=== PATIENT | female | born 1985 | race Hispanic/Latino ===

== ENCOUNTER 2017-07-29 19:48 | Emergency (ER) | payer SELFPAY ==
[2017-07-29 20:37] LABS: Bilirubin Negative (Negative); Blood, Urine Moderate (Negative); Glucose, Urine (Dipstick) 500 mg/dL (Negative); Ketone, Urine Trace mg/dL (Negative); Nitrite Negative (Negative); Protein, Urine (Dipstick) 30 mg/dL (Neg-Trace)
[2017-07-29 20:38] LABS: Bacteria/HPF 1+ HPF (None Seen); Hyaline Casts/LPF 0-3 HYALINE CAST LPF (0-3 Hyaline)
[2017-07-29 22:03] LABS: #Basophils 0.1 thou/uL (0.0-0.2); #Eosinphils 0.1 thou/uL (0.0-0.7); #Lymphocytes 2.8 thou/uL (1.20-3.40); #Monocytes 0.6 thou/uL (0.11-0.59); #Neutrophils 4.3 thou/uL (1.40-6.50); %Basophils 0.8 % (0.0-1.0); %Eosinophils 1.6 % (0.0-10.0); %Lymphocytes 35.5 % (21.0-51.0); Hematocrit 47.4 % (36.0-47.0); Mean Platelet Volume 8.3 fL (7.4-10.4); White Blood Cell (WBC) Count 7.8 thou/uL (4.8-10.8)
[2017-07-29 22:23] LABS: ALT (SGPT) 98 U/L (8-55); AST (SGOT) 54 U/L (5-34); Alkaline Phosphatase 54 U/L (40-150); Anion Gap 12 mmol/L (10-20); BUN (Urea Nitrogen) 13 mg/dL (7.0-18.7); Bilirubin, Total 1.4 mg/dL (0.2-1.2); Calc. Creatinine Clearance 0 mL/min (70-130); Calcium 9.3 mg/dL (7.8-10.44); Carbon Dioxide 28 mmol/L (22-29); Chloride 100 mmol/L (98-107); Estimated GFR-MDRD Greater than 90; Globulin 3.9 g/dL (2.4-3.5); Protein, Total 8.1 g/dL (6.0-8.3)
[2017-07-29] MEDS ORDERED: Ondansetron HCl/PF 4 MG/2 ML Vial ONE (23:59)
[2017-07-30] MEDS ORDERED: Ketorolac Tromethamine 30 MG/ML VIAL ONE (01:06)
[2017-07-30] MEDS ORDERED: Methocarbamol 1 GM/10 ML VIAL SLOW IVP SCH (03:00)
--- NOTE | 2017-07-30 07:41 | CT ---
PRELIMINARY REPORT/[facility]/EMERGENCY AFTER HOURS PROCEDURE: EXAM: CT Abdomen and Pelvis Without Intravenous Contrast EXAM DATE/TIME: Exam ordered 07/30/2017 2:31 AM CLINICAL HISTORY: 31 years old, female; Pain; Abdominal pain; Localized; Lower; Prior surgery; Patient HX: Previous on pacs; Er 13; Low back pain worse on left side - onset today vomiting onset today; Surgical history of cholecystectomy, laparoscopic, surgical history of section x 1, surgical history of tuba l ligation TECHNIQUE: Axial computed tomography images of the abdomen and pelvis without intravenous contrast. Coronal reformatted images were created and reviewed. COMPARISON: No relevant prior studies available. FINDINGS: Lower thorax: No acute findings. ABDOMEN: Liver: There is a diffuse decrease in hepatic parenchymal density, consistent with fatty infiltratio n. Gallbladder and bile ducts: There has been a cholecystectomy. No ductal dilation. Pancreas: There is peripancreatic inflammatory stranding suspicious for acute pancreatitis. No ducta l dilation. Spleen: Basis proximal stomachThe spleen is normal. Adrenals: The adrenal glands are normal. Kidneys and ureters: The kidneys are normal. No obstructing stones. No hydronephrosis. Stomach and bowel: The colon is normal. Appendix: A normal appendix is identified. PELVIS: Bladder: Normal. No stones. Reproductive: The uterus is normal. ABDOMEN and PELVIS: Intraperitoneal space: Normal. No free air. No significant fluid collection. Bones/joints: No acute fracture. No dislocation. Soft tissues: There is a fat-containing umbilical hernia. Vasculature: Normal. No abdominal aortic aneurysm. Lymph nodes: Normal. No enlarged lymph nodes. IMPRESSION: There is peripancreatic inflammatory stranding suspicious for acute pancreatitis. Correlation with lipase values is advised. Thank you for allowing us to participate in the care of your patient. Dictated and Authenticated by: Lokesh Lester MD 07/30/2017 3:10 AM Central Time ([place] \T\ [place]) FINAL REPORT CT ABDOMEN AND PELVIS WITHOUT CONTRAST: I agree with the preliminary report given by Dr. Lokesh Lester of [facility]. POS: [facility]
== END 2017-07-30 04:23 | disposition home or self-care (01) ==
LOC: ERS 19:48
DX: R10.9 Unspecified abdominal pain (principal); E11.9 Type 2 diabetes mellitus without complications; K21.9 Gastro-esophageal reflux disease without esophagitis; G43.909 Migraine, unspecified, not intractable, without status migrainosus; F41.9 Anxiety disorder, unspecified; F32.9 Major depressive disorder, single episode, unspecified; Z79.4 Long term (current) use of insulin
CPT/HCPCS: 36415; 74176; 80053; 81003; 81015; 81025; 82010; 83690; 85025; 96361; 96365; 96375; J1885; J2405; J2800

== ENCOUNTER 2017-10-05 10:59 | Emergency (ER) | payer SELFPAY ==
[2017-10-05] MEDS ORDERED: Dexamethasone 10 MG/ML VIAL ONE (13:41)
== END 2017-10-05 14:35 | disposition home or self-care (01) ==
LOC: ERS 10:59
DX: R05 Cough (principal); E11.9 Type 2 diabetes mellitus without complications; K21.9 Gastro-esophageal reflux disease without esophagitis; G43.909 Migraine, unspecified, not intractable, without status migrainosus; F17.210 Nicotine dependence, cigarettes, uncomplicated; Z79.4 Long term (current) use of insulin
CPT/HCPCS: 96372; J1100

== ENCOUNTER 2017-10-17 12:08 | Emergency (ER) | payer SELFPAY ==
[2017-10-17] MEDS ORDERED: Ketorolac Tromethamine 60 MG/2 ML VIAL ONE (12:38)
--- NOTE | 2017-10-17 13:17 | RAD ---
RIGHT SHOULDER RADIOGRAPHS: Date: 10-17-17 Provided Clinical History: Right shoulder pain. FINDINGS: There is no evidence for fracture or other acute osseous abnormality. The glenohumeral relationship a ppears normal. The subacromial space appears preserved. Visualized right lung field appears clear. IMPRESSION: No evidence for an acute osseous abnormality. POS: [facility]
== END 2017-10-17 13:14 | disposition home or self-care (01) ==
LOC: ERS 12:08
DX: M75.101 Unspecified rotator cuff tear or rupture of right shoulder, not specified as traumatic (principal); E11.9 Type 2 diabetes mellitus without complications; K21.9 Gastro-esophageal reflux disease without esophagitis; G43.909 Migraine, unspecified, not intractable, without status migrainosus; F31.9 Bipolar disorder, unspecified; F17.210 Nicotine dependence, cigarettes, uncomplicated; Z79.4 Long term (current) use of insulin; Z71.6 Tobacco abuse counseling
CPT/HCPCS: 96372; 99406; J1885

== ENCOUNTER 2017-11-26 17:20 | Emergency (ER) | payer SELFPAY ==
--- NOTE | 2017-11-26 18:43 | RAD ---
CHEST TWO VIEWS 11/26/17 COMPARISON: 06/24/17. HISTORY: Cough for a month. FINDINGS: No pneumothorax, pleural fluid, or focal consolidation is seen. However, there is asymmetric patchy o pacity noted in the right lung base superior to the right hemidiaphragm medially. No acute osseous ab normality. IMPRESSION: There is patchy opacity in the right lung base suggesting right lower lobe pneumonia. Followup imagin g following treatment advised. POS: [facility]
[2017-11-26] MEDS ORDERED: cefTRIAXone\\ROCEPHIN 500 MG VIAL ONE (18:44)
[2017-11-26] MEDS ORDERED: Lidocaine 1% (PF) 30 ML VIAL ONE (18:44)
== END 2017-11-26 19:13 | disposition home or self-care (01) ==
LOC: ERS 17:20
DX: J18.9 Pneumonia, unspecified organism (principal); K21.9 Gastro-esophageal reflux disease without esophagitis; G43.909 Migraine, unspecified, not intractable, without status migrainosus; F31.9 Bipolar disorder, unspecified; F17.210 Nicotine dependence, cigarettes, uncomplicated; Z79.899 Other long term (current) drug therapy; Z79.4 Long term (current) use of insulin
CPT/HCPCS: 71046; 96372; J0696; J2001

== ENCOUNTER 2017-11-29 22:16 | Emergency (ER) | payer SELFPAY ==
--- NOTE | 2017-11-29 23:02 | RAD ---
PORTABLE CHEST: 11/29/17 HISTORY: cough with congestion. COMPARISON: 11/26/17. There continues to be patchy right lower lobe infiltrate. There is now evidence of early left lower l obe infiltrate. Upper lungs remain clear. IMPRESSION: Bibasilar infiltrates are now apparent. POS: [facility]
[2017-11-30 00:57] LABS: #Basophils 0.1 thou/uL (0.0-0.2); #Eosinphils 0.2 thou/uL (0.0-0.7); #Monocytes 0.6 thou/uL (0.11-0.59); #Neutrophils 4.1 thou/uL (1.40-6.50); %Basophils 1.6 % (0.0-1.0); %Eosinophils 2.2 % (0.0-10.0); %Lymphocytes 37.7 % (21.0-51.0); %Monocytes 7.1 % (0.0-10.0); %Neutrophils 51.5 % (42.0-75.0); Hemoglobin 13.9 g/dL (12.0-16.0); Mean Corpuscular HGB CONC 33.6 g/dL (32.0-36.0); Mean Corpuscular Hemoglobin 30.6 pg (27.0-31.0); Mean Corpuscular Volume 91.1 fl (81.0-99.0); Mean Platelet Volume 8.4 fL (7.4-10.4); Platelet Count 295 thou/uL (130-400); RBC Distribution Width 11.8 % (11.5-14.5); Red Blood Cell (RBC) Count 4.53 mill/uL (4.20-5.40)
[2017-11-30 01:11] LABS: ALT (SGPT) 163 U/L (8-55); AST (SGOT) 46 U/L (5-34); Alkaline Phosphatase 66 U/L (40-150); Anion Gap 13 mmol/L (10-20); BUN (Urea Nitrogen) 14 mg/dL (7.0-18.7); Bilirubin, Total 0.5 mg/dL (0.2-1.2); Calc. Creatinine Clearance 0 mL/min (70-130); Calcium 9.4 mg/dL (7.8-10.44); Carbon Dioxide 27 mmol/L (22-29); Chloride 99 mmol/L (98-107); Estimated GFR-MDRD Greater than 90; Globulin 3.5 g/dL (2.4-3.5); Glucose 266 mg/dL (70-105); Protein, Total 7.5 g/dL (6.0-8.3); Sodium 135 mmol/L (136-145)
[2017-11-30] MEDS ORDERED: Ketorolac Tromethamine 30 MG/ML VIAL ONE (01:27)
== END 2017-11-30 02:24 | disposition home or self-care (01) ==
LOC: ERS 22:16
DX: J18.9 Pneumonia, unspecified organism (principal); E11.9 Type 2 diabetes mellitus without complications; K21.9 Gastro-esophageal reflux disease without esophagitis; G43.909 Migraine, unspecified, not intractable, without status migrainosus; F31.9 Bipolar disorder, unspecified; F17.210 Nicotine dependence, cigarettes, uncomplicated; Z79.4 Long term (current) use of insulin
CPT/HCPCS: 36415; 71045; 80053; 85025; 94640; 96372; J1885; J7620

== ENCOUNTER 2018-01-09 10:59 | Emergency (ER) | payer SELFPAY ==
[2018-01-09] MEDS ORDERED: Lidocaine 1% w/Epinephrine 1:100K 20 ML VIAL ONE (12:44)
[2018-01-09] MEDS ORDERED: Adacel (T-DAP) 0.5 ML VIAL ONE (13:33)
== END 2018-01-09 14:06 | disposition home or self-care (01) ==
LOC: ERS 10:59
DX: L02.415 Cutaneous abscess of right lower limb (principal); E11.9 Type 2 diabetes mellitus without complications; K21.9 Gastro-esophageal reflux disease without esophagitis; F31.9 Bipolar disorder, unspecified; G43.909 Migraine, unspecified, not intractable, without status migrainosus; Z79.4 Long term (current) use of insulin; Z79.899 Other long term (current) drug therapy
CPT/HCPCS: 10060; 87070; 87077; 87205; 90471; 90715; J2001

== ENCOUNTER 2018-01-14 17:10 | Inpatient (IN) | payer SELFPAY ==
[2018-01-14] MEDS ORDERED: Lidocaine 1% w/Epinephrine 1:100K 20 ML VIAL ONE (17:55)
[2018-01-14] MEDS ORDERED: Morphine 4 MG/ML VIAL ONE (18:45)
[2018-01-14] MEDS ORDERED: MEROPENEM 1 GM/50 ML 1 GM in Premix Bag 1 BAG IVPB SCH (19:00)
[2018-01-14 19:01] LABS: #Eosinphils 0.2 thou/uL (0.0-0.7); #Lymphocytes 3.8 thou/uL (1.20-3.40); #Monocytes 0.7 thou/uL (0.11-0.59); %Basophils 0.2 % (0.0-1.0); %Eosinophils 1.5 % (0.0-10.0); %Lymphocytes 35.4 % (21.0-51.0); %Monocytes 6.3 % (0.0-10.0); %Neutrophils 56.5 % (42.0-75.0); Hemoglobin 14.1 g/dL (12.0-16.0); Mean Corpuscular HGB CONC 33.5 g/dL (32.0-36.0); Mean Corpuscular Volume 89.4 fl (81.0-99.0); Mean Platelet Volume 7.8 fL (7.4-10.4); Platelet Count 316 thou/uL (130-400); RBC Distribution Width 12.2 % (11.5-14.5); Red Blood Cell (RBC) Count 4.72 mill/uL (4.20-5.40); White Blood Cell (WBC) Count 10.6 thou/uL (4.8-10.8)
[2018-01-14 19:26] LABS: ALT (SGPT) 136 U/L (8-55); AST (SGOT) 63 U/L (5-34); Alkaline Phosphatase 55 U/L (40-150); Anion Gap 12 mmol/L (10-20); BUN (Urea Nitrogen) 10 mg/dL (7.0-18.7); Bilirubin, Total 0.5 mg/dL (0.2-1.2); Calc. Creatinine Clearance 0 mL/min (70-130); Calcium 9.9 mg/dL (7.8-10.44); Carbon Dioxide 27 mmol/L (22-29); Chloride 99 mmol/L (98-107); Estimated GFR-MDRD Greater than 90; Globulin 3.6 g/dL (2.4-3.5); Glucose 383 mg/dL (70-105); Potassium 4.1 mmol/L (3.5-5.1); Protein, Total 7.6 g/dL (6.0-8.3); Sodium 134 mmol/L (136-145)
[2018-01-14 19:49] LABS: BHCG - Serum Negative (NEGATIVE); Pregs Control Background? CLEAR/WHITE (CLR/WHITE); Pregs Control Bar Appear? YES (CONTROL BAR)
[2018-01-14] MEDS ORDERED: HumaLOG 300 UNITS/3 ML VIAL SC PRN (20:44)
[2018-01-14] MEDS ORDERED: Dextrose 50% Abboject 50 ML SYRINGE SLOW IVP PRN (20:44)
[2018-01-14] MEDS ORDERED: Ondansetron ODT 4 MG TAB PO PRN (20:44)
[2018-01-14] MEDS ORDERED: Ondansetron HCl/PF 4 MG/2 ML Vial IVP PRN (20:44)
[2018-01-14] MEDS ORDERED: Dextrose 5% in Water 1,000 ML IV PRN (20:44)
[2018-01-14] MEDS ORDERED: Acetaminophen 650 MG Suppository PR PRN (20:44)
[2018-01-14] MEDS ORDERED: Bisacodyl 5 MG TAB PO PRN (20:44)
[2018-01-14] MEDS: traMADol HCl 50 MG TAB PO PRN (21:58)
[2018-01-14] MEDS: CEFAZOLIN SLOW IVP SCH (21:59)
[2018-01-14] MEDS: STERILE WATER SLOW IVP SCH (21:59)
[2018-01-14] MEDS: Insulin Detemir 100 UNITS/ML 10 UNITS in Pre-Filled Syringe 1 EACH SC SCH (21:59)
[2018-01-14] MEDS: Sodium Chloride 0.9% 1,000 ML IV SCH (21:59)
[2018-01-14] MEDS: Docusate 100 MG CAP PO SCH (22:00)
[2018-01-14 23:03] LABS: Lactic Acid 1.6 mmol/L (0.5-2.2)
[2018-01-15] MEDS: traMADol HCl 50 MG TAB PO PRN ×4 (03:51→20:23)
[2018-01-15 06:10] LABS: #Eosinphils 0.2 thou/uL (0.0-0.7); #Lymphocytes 2.6 thou/uL (1.20-3.40); #Monocytes 0.7 thou/uL (0.11-0.59); %Basophils 0.5 % (0.0-1.0); %Eosinophils 1.7 % (0.0-10.0); %Lymphocytes 27.3 % (21.0-51.0); %Monocytes 7.7 % (0.0-10.0); %Neutrophils 62.8 % (42.0-75.0); Hemoglobin 12.8 g/dL (12.0-16.0); Mean Corpuscular HGB CONC 33.6 g/dL (32.0-36.0); Mean Corpuscular Volume 89.3 fl (81.0-99.0); Mean Platelet Volume 7.7 fL (7.4-10.4); Platelet Count 290 thou/uL (130-400); Red Blood Cell (RBC) Count 4.27 mill/uL (4.20-5.40); White Blood Cell (WBC) Count 9.5 thou/uL (4.8-10.8)
[2018-01-15 06:28] LABS: Lactic Acid 1.2 mmol/L (0.5-2.2)
[2018-01-15 06:31] LABS: Anion Gap 13 mmol/L (10-20); BUN (Urea Nitrogen) 12 mg/dL (7.0-18.7); Calc. Creatinine Clearance 0 mL/min (70-130); Calcium 8.7 mg/dL (7.8-10.44); Carbon Dioxide 25 mmol/L (22-29); Chloride 101 mmol/L (98-107); Estimated GFR-MDRD Greater than 90; Glucose 187 mg/dL (70-105); Potassium 3.8 mmol/L (3.5-5.1); Sodium 135 mmol/L (136-145)
[2018-01-15] MEDS: CEFAZOLIN SLOW IVP SCH ×3 (06:40→22:31)
[2018-01-15] MEDS: STERILE WATER SLOW IVP SCH ×3 (06:40→22:31)
[2018-01-15] MEDS: HumaLOG 300 UNITS/3 ML VIAL SC PRN ×3 (06:43→17:18)
--- NOTE | 2018-01-15 08:51 | PDOC.PN ---
- Subjective Encounter Start Date: 01/15/18 Encounter Start Time: 12:50 Subjective: Patient unchanged. Minimal drainage from lump in right groin. Very -: tender. - Objective Resuscitation Status: Resuscitation Status FULL:Full Resuscitation MAR Reviewed: Yes Vital Signs & Weight: Vital Signs (12 hours) Temp Pulse Resp BP Pulse Ox 01/15/18 07:50 98.3 F 84 20 136/74 96 01/15/18 03:55 98.8 F 80 18 146/70 H 01/15/18 00:10 99.4 F 88 18 Result Diagrams: 01/15/18 05:55 01/15/18 05:55 Additional Labs: Accuchecks 01/14/18 22:07 POC Glucose 252 H Phys Exam - Physical Examination Constitutional: NAD HEENT: moist MMs Respiratory: no wheezing, no rales, no rhonchi, clear to auscultation bilateral Cardiovascular: RRR, no significant murmur Gastrointestinal: soft, non-tender, positive bowel sounds 10x7 cm induration right groin on thigh distal to inguinal ligament, very TTP, no erythema, no warmth, no fluctuance Neurological: non-focal Psychiatric: normal affect, A&O x 3 Dx/Plan (1) Skin abscess Code(s): L02.91 - CUTANEOUS ABSCESS, UNSPECIFIED Status: Acute Qualifiers: Site of cutaneous abscess: extremity Laterality: right Comment: few Beta hemolytic strep on culture, likely Hidradenitis, surgical consultation for excision, on Ancef currently (2) Diabetes Code(s): E11.9 - TYPE 2 DIABETES MELLITUS WITHOUT COMPLICATIONS Status: Chronic (3) GERD (gastroesophageal reflux disease) Code(s): K21.9 - GASTRO-ESOPHAGEAL REFLUX DISEASE WITHOUT ESOPHAGITIS Status: Chronic (4) Morbid obesity Code(s): E66.01 - MORBID (SEVERE) OBESITY DUE TO EXCESS CALORIES Status: Chronic (5) LFT elevation Code(s): R79.89 - OTHER SPECIFIED ABNORMAL FINDINGS OF BLOOD CHEMISTRY Status : Acute Comment: likely fatty liver with obesity and DM - Plan cont current plan of care, continue antibiotics Surgical consultation for possible excision * . - Discharge Day Encounter end time: 13:00
[2018-01-15] MEDS: Enoxaparin Sodium 40 MG/0.4 ML SYRINGE SC SCH (09:18)
[2018-01-15] MEDS: Docusate 100 MG CAP PO SCH ×2 (09:18→22:31)
[2018-01-15] MEDS: Insulin Detemir 100 UNITS/ML 10 UNITS in Pre-Filled Syringe 1 EACH SC SCH ×2 (09:19→22:31)
[2018-01-15] MEDS: Acetaminophen 325 MG TAB PO PRN ×2 (10:38→20:22)
--- NOTE | 2018-01-15 10:40 | HP ---
PRIMARY CARE PHYSICIAN: [facility] in [place]. CHIEF COMPLAINT: Swelling in right groin. HISTORY OF PRESENT ILLNESS: This is a 32-year-old obese, diabetic, female who has had swell ing in her right groin for 3 weeks. She states that it is very painful, red and had a head on it. S he went to the emergency room last week and had it drained a large amount of pus was expressed and th en patient was put on clindamycin. She has been taking this regularly for the last 5 days. The [facility] ent reports that after the drainage, the swollen area got twice as large and much more painful. She has not had any systemic symptoms. She came back in today, it was relanced in the emergency room wit hout any drainage at all, a wick was put in the middle of it and the patient was given meropenem and vancomycin in the emergency room for failed outpatient treatment with oral antibiotics. Of note, the patient does report that she has had multiple these sort of lesions in her armpits, but never got th is painful in the past, no restraints spontaneously. PAST MEDICAL HISTORY: 1. Diabetes mellitus type 2 on insulin and oral hypoglycemics. 2. Gastroesophageal reflux disease. 3. Migraine headaches. PAST SURGICAL HISTORY: 1. Cholecystectomy. 2. section. 3. Tubal ligation. PAST PSYCHIATRIC HISTORY: Bipolar disorder. SOCIAL HISTORY: No tobacco, alcohol, or illicit drug use. FAMILY HISTORY: Hypertension and collagen vascular disease. ALLERGIES: No known drug allergies. CURRENT MEDICATIONS: 1. Metformin 1000 mg twice a day. 2. Glyburide 5 mg twice a day. 3. Nexium 20 mg daily. 4. Levemir 10-20 units subcutaneously 2 times a day. 5. DuoNeb as needed. 6. Clindamycin 300 mg 4 times a day. REVIEW OF SYSTEMS: Constitutional: No fevers, no chills. Eyes: No double vision or blurred vision . ENT: No congestion, drainage or sore throat. Pulmonary: No coughing, wheezing, shortness breath . Cardiac: No chest pain, no palpitations or racing heart. Gastrointestinal: No abdominal pain. She did have some nausea when she choked on a pill the other day. Otherwise, no nausea or vomiting, no diarrhea, constipation. Genitourinary: No dysuria or hematuria. Musculoskeletal: No muscle ach es or joint pains. Skin: See HPI. No other lesions. Neurologic: No numbness, tingling or focal w eakness. PHYSICAL EXAMINATION: VITAL SIGNS: Blood pressure 116/65, pulse 86, respirations 18, temperature 99.0, O2 sat 97% on room air. GENERAL: This is a well-developed, morbidly obese female in no apparent distress. HEENT: Pupils equal, round, and react to light. Oropharynx is clear without lesions, erythema or ex udate. NECK: Supple, no lymphadenopathy, no thyroid nodules or enlargement. HEART: Regular rate and rhythm, no murmurs, rubs or gallops. LUNGS: Clear to auscultation bilaterally, no wheezes, crackles or rhonchi. ABDOMEN: Soft, obese, nontender to palpation, normoactive bowel sounds, no hepatosplenomegaly or mas ses. EXTREMITIES: No clubbing, cyanosis or edema. SKIN: The patient has a 5 cm area of induration in the right groin. This is distal to the inguinal ligament on the medial thigh just distal to the ligament, has a bandage in place and an incision with draining a small amount of blood in the cavity. There is no induration, minimal overlying erythema, no warmth, very tender to palpation. No other rashes or lesions noted. NEUROLOGIC: Intact sensation and strength in all extremities and normal. No facial droop. LABORATORY DATA: CBC within normal limits. Complete metabolic panel notable for sodium of 134, gluc ose of 382. Lactic acid is elevated at 3.1, AST elevated at 63, ALT of 136. Serum test is negative. Beta hydroxybutyrate was negative. Microbiology: Wound culture from 5 days ago shows fe w Streptococcus agalactiae group B and few normal skin dean. No Staph or MRSA. ASSESSMENT: 1. Recurrent skin lesion in the right groin, status post drainage, this could be an abscess versus l ymphadenitis versus hidradenitis suppurativa as the more likely a candidate. The patient did have a little bit of bacteria grow back from it. Streptococcus should be covered by clindamycin and given he r worsening condition in the last 5 days. We will switch her to Ancef, I do not think she needs any MRSA coverage at this point or any coverage of Pseudomonas and gram negatives. We will have a genera l surgery come by and see her as if it is hidradenitis suppurativa of the gland may need to be excise d as antibiotic treatment will not be helpful in that case. 2. Elevated lactate. The patient is not acidotic. This is most likely secondary to her metformin. We will recheck in the morning after fluids overnight. 3. Diabetes mellitus type 2, insulin-dependent. We will resume patient's Lantus and will put her on moderate sliding scale and give her a diabetic diet. 4. Gastroesophageal reflux disease. We will put patient on proton pump inhibitor while in the hospi oneal. 5. Deep venous thrombosis prophylaxis, put patient on Lovenox and sequential compression devices whi le in bed. 6. Code status. I did discuss with the patient, she is a FULL CODE. Should she be incapacitated, h er medical decision maker will be her sister, Breanna Danielle.
[2018-01-15] MEDS: Sodium Chloride 0.9% 1,000 ML IV SCH ×2 (10:42→22:40)
[2018-01-15 12:47] VITALS: BMI 51.6
[2018-01-15] MEDS ORDERED: Lidocaine 1% w/Epinephrine 1:100K 20 ML VIAL FS SCH (20:15)
[2018-01-16] MEDS: STERILE WATER SLOW IVP SCH ×3 (06:46→23:30)
[2018-01-16] MEDS: CEFAZOLIN SLOW IVP SCH ×3 (06:46→23:30)
[2018-01-16] MEDS: HumaLOG 300 UNITS/3 ML VIAL SC PRN ×3 (06:49→17:40)
[2018-01-16] MEDS: Docusate 100 MG CAP PO SCH ×2 (09:03→22:11)
[2018-01-16] MEDS: Enoxaparin Sodium 40 MG/0.4 ML SYRINGE SC SCH (09:04)
[2018-01-16] MEDS: Insulin Detemir 100 UNITS/ML 10 UNITS in Pre-Filled Syringe 1 EACH SC SCH ×2 (09:04→22:12)
--- NOTE | 2018-01-16 10:19 | PDOC.PN ---
- Subjective Encounter Start Date: 01/16/18 Encounter Start Time: 10:17 Subjective: no fever, mild paim - Objective Resuscitation Status: Resuscitation Status FULL:Full Resuscitation MAR Reviewed: Yes Vital Signs & Weight: Vital Signs (12 hours) Temp Pulse Resp BP Pulse Ox 01/16/18 07:45 98.1 F 80 18 136/79 96 Weight Weight 264 lb 8.875 oz I&O: 01/15/18 01/16/18 01/17/18 06:59 06:59 06:59 Intake Total 672 Balance 672 Result Diagrams: 01/15/18 05:55 01/15/18 05:55 Additional Labs: Accuchecks 01/16/18 01/15/18 01/15/18 06:50 22:36 16:07 POC Glucose 165 H 198 H 216 H 01/15/18 11:11 POC Glucose 225 H Phys Exam - Physical Examination Neck: no JVD Respiratory: clear to auscultation bilateral Cardiovascular: RRR, no significant murmur Gastrointestinal: soft, non-tender, positive bowel sounds bandaged lesion R inguinal area Musculoskeletal: edema present Dx/Plan (1) Abscess of groin, left Code(s): L02.214 - CUTANEOUS ABSCESS OF GROIN Status: Acute (2) Diabetes Code(s): E11.9 - TYPE 2 DIABETES MELLITUS WITHOUT COMPLICATIONS Status: Chronic Qualifiers: Diabetes mellitus type: type 2 Diabetes mellitus complication status: without complication (3) GERD (gastroesophageal reflux disease) Code(s): K21.9 - GASTRO-ESOPHAGEAL REFLUX DISEASE WITHOUT ESOPHAGITIS Status: Chronic (4) GERD (gastroesophageal reflux disease) Code(s): K21.9 - GASTRO-ESOPHAGEAL REFLUX DISEASE WITHOUT ESOPHAGITIS Status: Acute - Plan cont iv antibx -: planned I&D -: analgesia -: accu/ ss * .
[2018-01-16] MEDS ORDERED: Diazepam 5 MG TAB PO SCH (12:00)
[2018-01-16] MEDS: Acetaminophen 325 MG TAB PO PRN (12:35)
[2018-01-16] MEDS ORDERED: Morphine 5 MG/ML SYRINGE SLOW IVP SCH (13:30)
[2018-01-16] MEDS ORDERED: HYDROcodone/Acetaminophen 7.5/325 mg Tablet PO PRN (15:08)
[2018-01-16] MEDS: HYDROcodone/Acetaminophen 7.5/325 mg Tablet PO PRN ×2 (16:28→22:11)
[2018-01-16] MEDS: Sodium Chloride 0.9% 1,000 ML IV SCH (16:29)
[2018-01-17] MEDS: HYDROcodone/Acetaminophen 7.5/325 mg Tablet PO PRN ×3 (04:45→13:16)
[2018-01-17] MEDS: Sodium Chloride 0.9% 1,000 ML IV SCH (04:46)
[2018-01-17] MEDS: CEFAZOLIN SLOW IVP SCH (05:56)
[2018-01-17] MEDS: STERILE WATER SLOW IVP SCH (05:56)
[2018-01-17] MEDS: HumaLOG 300 UNITS/3 ML VIAL SC PRN ×2 (07:27→11:24)
[2018-01-17] MEDS: Insulin Detemir 100 UNITS/ML 10 UNITS in Pre-Filled Syringe 1 EACH SC SCH (09:48)
[2018-01-17] MEDS: Enoxaparin Sodium 40 MG/0.4 ML SYRINGE SC SCH (09:49)
[2018-01-17] MEDS: Docusate 100 MG CAP PO SCH (09:50)
[2018-01-17 11:34] VITALS: BP 133/75; TEMP 98.3
--- NOTE | 2018-01-17 14:36 | DIS ---
DATE OF ADMISSION: 01/14/2018 DATE OF DISCHARGE: 01/17/2018 PRIMARY CARE PROVIDER: Tenzin Crook. FINAL DIAGNOSES: Abscess of the groin on the right post-incision and drainage, diabetes mellitus typ e 2, and gastroesophageal reflux disease. DISCHARGE MEDICATIONS: Omeprazole 20 mg a day, metformin 1000 mg twice a day, glyburide 5 mg twice a day, detemir 10 units subcu b.i.d., and Omnicef 300 mg p.o. b.i.d. ALLERGIES: None. PENDING AT THE TIME OF DISCHARGE: Nothing. CODE STATUS: FULL. HOSPITAL COURSE: [facility] with a painful red abscess in her right groin. She has been seen in the e mergency room, had I and D, put on antibiotics, became worse. Initial laboratory: White count 10.6 with no left shift. Followup white count 95, hemoglobin 14.1 and 12.8. Chemistries: Blood sugars a t the time of discharge were ranging 200 plus/minus. Chemistries: Sodium 135, otherwise normal. The patient was placed on IV antibiotics, seen in consultation by Dr. Howard Esquivel. She underwent I and D on 01/16/2018. She has been instructed by Wound Care and in appropriate wound care. She is be ing discharged on Omnicef 300 mg twice a day and her usual home medicines. She has been asked to fol low up with her PCP Tenzin Crook and with Dr. Esquivel per his directions.
== END 2018-01-17 14:27 | disposition home or self-care (01) | DRG 603 ==
LOC: ERS 17:10 → 3SE 20:26
PROVIDERS: ADMIT Emergency Medicine; ATTEND Emergency Medicine
PROC: 0H9HXZZ Drainage of Right Upper Leg Skin, External Approach (ICD-10-PCS; principal; 2018-01-15)
DX: L03.314 Cellulitis of groin (principal); E11.65 Type 2 diabetes mellitus with hyperglycemia; Z68.43 Body mass index [BMI] 50.0-59.9, adult; E66.01 Morbid (severe) obesity due to excess calories; E11.9 Type 2 diabetes mellitus without complications; K21.9 Gastro-esophageal reflux disease without esophagitis; G43.909 Migraine, unspecified, not intractable, without status migrainosus; Z79.4 Long term (current) use of insulin; Z79.84 Long term (current) use of oral hypoglycemic drugs; Z90.49 Acquired absence of other specified parts of digestive tract; Z79.899 Other long term (current) drug therapy
CPT/HCPCS: 10060; 36415; 36416; 80048; 80053; 82010; 83605; 84703; 85025; 96361; 96365; 96375; J2270; A4216; J0690; J1650; J1815; J2001; J2185; J3370

== ENCOUNTER 2018-04-11 12:57 | Emergency (ER) | payer SELFPAY ==
--- NOTE | 2018-04-11 13:41 | CT ---
CT HEAD WITHOUT CONTRAST: Multiple axial tomograms were obtained through the head without IV enhancement. HISTORY: Stroke alert. Change of vision in the right eye. Possible right arm weakness. Ventricles have normal size and position. Motion artifact mildly degrades the exam; however, there i s no evidence of acute infarct, mass, or hemorrhage. Sinuses and mastoids are well aerated. IMPRESSION: No acute abnormality identified. Findings related to Dr. Trejo at 1:16 p.m. CODE CR POS: [facility]
[2018-04-11] MEDS ORDERED: Metoclopramide HCl 10 MG/2 ML VIAL ONE (13:44)
[2018-04-11] MEDS ORDERED: diphenhydrAMINE 50 MG/ML VIAL ONE (13:44)
[2018-04-11 14:10] LABS: #Basophils 0.1 thou/uL (0.0-0.2); #Eosinphils 0.2 thou/uL (0.0-0.7); #Lymphocytes 2.9 thou/uL (1.20-3.40); #Monocytes 0.6 thou/uL (0.11-0.59); #Neutrophils 5.2 thou/uL (1.40-6.50); %Basophils 0.9 % (0.0-1.0); %Eosinophils 1.9 % (0.0-10.0); %Lymphocytes 32.1 % (21.0-51.0); %Monocytes 6.2 % (0.0-10.0); %Neutrophils 58.9 % (42.0-75.0); Hemoglobin 14.7 g/dL (12.0-16.0); Mean Corpuscular HGB CONC 33.4 g/dL (32.0-36.0); Mean Corpuscular Hemoglobin 29.8 pg (27.0-31.0); Mean Corpuscular Volume 89.3 fL (78.0-98.0); Mean Platelet Volume 9.2 fL (7.4-10.4); Platelet Count 246 thou/uL (130-400); RBC Distribution Width 12.2 % (11.5-14.5); Red Blood Cell (RBC) Count 4.93 mill/uL (4.20-5.40); White Blood Cell (WBC) Count 8.9 thou/uL (4.8-10.8)
[2018-04-11 14:16] LABS: BHCG - Serum Negative (NEGATIVE); Pregs Control Background? CLEAR/WHITE (CLR/WHITE); Pregs Control Bar Appear? YES (CONTROL BAR)
[2018-04-11 14:19] LABS: PTT 26.1 SEC (22.9-36.1); Prothrombin Time 12.9 SEC (12.0-14.7)
[2018-04-11 14:30] LABS: ALT (SGPT) 107 U/L (8-55); AST (SGOT) 59 U/L (5-34); Albumin 4.2 g/dL (3.5-5.0); Alkaline Phosphatase 57 U/L (40-150); Anion Gap 11 mmol/L (10-20); BUN (Urea Nitrogen) 11 mg/dL (7.0-18.7); Calc. Creatinine Clearance 0 mL/min (70-130); Calcium 9.5 mg/dL (7.8-10.44); Carbon Dioxide 27 mmol/L (22-29); Chloride 100 mmol/L (98-107); Estimated GFR-MDRD 73; Globulin 3.3 g/dL (2.4-3.5); Glucose 348 mg/dL (70-105); Potassium 4.3 mmol/L (3.5-5.1); Protein, Total 7.5 g/dL (6.0-8.3); Sodium 134 mmol/L (136-145)
[2018-04-11 14:34] LABS: CKMB 0.8 ng/mL (0-6.6); Troponin I Less than 0.010 ng/mL (< 0.028)
[2018-04-11 15:43] LABS: Bilirubin Negative (Negative); Blood, Urine Negative (Negative); Clarity CLEAR (Clear); Glucose, Urine (Dipstick) >=1000 mg/dL (Negative); Leukocyte Negative (Negative); Nitrite Negative (Negative); Protein, Urine (Dipstick) Negative (Neg-Trace); Specific Gravity, Urine 1.031 (1.002-1.036); Urobilinogen 0.2 mg/dL (0.2-1.0); pH, Urine 6.5 (5.0-9.0)
[2018-04-11] MEDS ORDERED: Ketorolac Tromethamine 30 MG/ML VIAL ONE (16:08)
== END 2018-04-11 16:17 | disposition home or self-care (01) ==
LOC: ERS 12:57
DX: R51 Headache (principal); E11.9 Type 2 diabetes mellitus without complications; K21.9 Gastro-esophageal reflux disease without esophagitis; F41.9 Anxiety disorder, unspecified; F32.9 Major depressive disorder, single episode, unspecified
CPT/HCPCS: 36416; 70450; 80053; 81003; 82553; 84484; 84703; 85025; 85610; 85730; 93005; 96365; 96375; J1200; J1885; J2765

== ENCOUNTER 2018-07-01 16:02 | Emergency (ER) | payer SELFPAY | END 2018-07-01 16:39 | disposition home or self-care (01) | LOC: ERS 16:02 | DX: B07.0 Plantar wart (principal); E11.9 Type 2 diabetes mellitus without complications; K21.9 Gastro-esophageal reflux disease without esophagitis; G43.909 Migraine, unspecified, not intractable, without status migrainosus; F41.9 Anxiety disorder, unspecified; F32.9 Major depressive disorder, single episode, unspecified | CPT/HCPCS: 99282 ==

== ENCOUNTER 2018-09-02 10:19 | Emergency (ER) | payer SELFPAY ==
[2018-09-02 10:44] LABS: #Basophils 0.1 thou/uL (0.0-0.2); #Eosinphils 0.1 thou/uL (0.0-0.7); #Monocytes 0.4 thou/uL (0.11-0.59); #Neutrophils 5.2 thou/uL (1.40-6.50); %Eosinophils 1.2 % (0.0-10.0); %Lymphocytes 25.6 % (21.0-51.0); %Monocytes 5.4 % (0.0-10.0); %Neutrophils 66.9 % (42.0-75.0); Hemoglobin 16.4 g/dL (12.0-16.0); Mean Corpuscular HGB CONC 33.1 g/dL (32.0-36.0); Mean Corpuscular Hemoglobin 29.9 pg (27.0-31.0); Mean Corpuscular Volume 90.5 fL (78.0-98.0); Mean Platelet Volume 9.3 fL (7.4-10.4); Platelet Count 296 thou/uL (130-400); RBC Distribution Width 12.1 % (11.5-14.5); Red Blood Cell (RBC) Count 5.49 mill/uL (4.20-5.40); White Blood Cell (WBC) Count 7.7 thou/uL (4.8-10.8)
[2018-09-02] MEDS ORDERED: Metoclopramide HCl 10 MG/2 ML VIAL ONE (10:52)
[2018-09-02 11:16] LABS: BHCG - Serum Negative (NEGATIVE); Pregs Control Background? CLEAR/WHITE (CLR/WHITE); Pregs Control Bar Appear? YES (CONTROL BAR)
[2018-09-02 11:20] LABS: Bilirubin Negative (Negative); Blood, Urine Small (Negative); Clarity CLEAR (Clear); Glucose, Urine (Dipstick) >=1000 mg/dL (Negative); Leukocyte Negative (Negative); Nitrite Negative (Negative); Protein, Urine (Dipstick) Trace mg/dL (Neg-Trace)
[2018-09-02] MEDS ORDERED: Pantoprazole 40 MG VIAL ONE (11:21)
[2018-09-02] MEDS ORDERED: Dicyclomine 20 MG TAB ONE (11:21)
[2018-09-02 11:23] LABS: Bacteria/HPF None Seen HPF (None Seen); Hyaline Casts/LPF 0-3 HYALINE CAST LPF (0-3 Hyaline); Squamous Epithelial 0-3 HPF (0-3); WBC/HPF 0-3 HPF (0-3)
[2018-09-02 11:25] LABS: Pregnancy Test - Urine (BHCG) Negative (Negative)
[2018-09-02 11:26] LABS: Pregu Control Background? CLEAR/WHITE (CLR/WHITE); Pregu Control Bar Appear? YES (CONTROL BAR); Specific Gravity 1.044 (1.002-1.036); Specific Gravity, Urine 1.044 (1.002-1.036)
[2018-09-02 11:33] LABS: ALT (SGPT) 172 U/L (8-55); AST (SGOT) 138 U/L (5-34); Albumin 4.5 g/dL (3.5-5.0); Alkaline Phosphatase 71 U/L (40-150); Anion Gap 17 mmol/L (10-20); BUN (Urea Nitrogen) 15 mg/dL (7.0-18.7); Bilirubin, Total 1.2 mg/dL (0.2-1.2); Calc. Creatinine Clearance 0 mL/min (70-130); Calcium 9.5 mg/dL (7.8-10.44); Carbon Dioxide 22 mmol/L (22-29); Chloride 99 mmol/L (98-107); Estimated GFR-MDRD 86; Globulin 3.6 g/dL (2.4-3.5); Glucose 354 mg/dL (70-105); Lipase 18 U/L (8-78); Potassium 4.3 mmol/L (3.5-5.1); Protein, Total 8.1 g/dL (6.0-8.3); Sodium 134 mmol/L (136-145)
== END 2018-09-02 13:01 | disposition home or self-care (01) ==
LOC: ERS 10:19
DX: R11.2 Nausea with vomiting, unspecified (principal); R19.7 Diarrhea, unspecified; E11.9 Type 2 diabetes mellitus without complications; K21.9 Gastro-esophageal reflux disease without esophagitis; G43.909 Migraine, unspecified, not intractable, without status migrainosus; F41.9 Anxiety disorder, unspecified; F32.9 Major depressive disorder, single episode, unspecified
CPT/HCPCS: 36415; 80053; 81003; 81015; 81025; 83690; 84703; 85025; 96365; 96366; 96375; C9113; J2765

== ENCOUNTER 2018-09-16 09:12 | Emergency (ER) | payer SELFPAY ==
[2018-09-16] MEDS ORDERED: Metoclopramide HCl 10 MG/2 ML VIAL ONE ×2 (10:10→10:11)
[2018-09-16] MEDS ORDERED: Dicyclomine 20 MG TAB ONE (10:10)
[2018-09-16] MEDS ORDERED: Sodium Chloride 0.9% 0 ML ONE (10:10)
[2018-09-16] MEDS ORDERED: Famotidine/PF 20 mg/2ml Vial ONE (10:10)
[2018-09-16 10:23] LABS: #Basophils 0.1 thou/uL (0.0-0.2); #Eosinphils 0.1 thou/uL (0.0-0.7); #Lymphocytes 1.9 thou/uL (1.20-3.40); #Monocytes 0.6 thou/uL (0.11-0.59); %Basophils 0.8 % (0.0-1.0); %Eosinophils 0.7 % (0.0-10.0); %Lymphocytes 17.8 % (21.0-51.0); %Monocytes 5.3 % (0.0-10.0); %Neutrophils 75.5 % (42.0-75.0); Mean Corpuscular HGB CONC 31.8 g/dL (32.0-36.0); Mean Corpuscular Hemoglobin 29.1 pg (27.0-31.0); Mean Corpuscular Volume 91.5 fL (78.0-98.0); Mean Platelet Volume 9.2 fL (7.4-10.4); Platelet Count 298 thou/uL (130-400); Red Blood Cell (RBC) Count 5.16 mill/uL (4.20-5.40); White Blood Cell (WBC) Count 10.6 thou/uL (4.8-10.8)
[2018-09-16 10:34] LABS: BHCG - Serum Negative (NEGATIVE); Pregs Control Background? CLEAR/WHITE (CLR/WHITE); Pregs Control Bar Appear? YES (CONTROL BAR)
[2018-09-16 10:50] LABS: ALT (SGPT) 101 U/L (8-55); AST (SGOT) 54 U/L (5-34); Albumin 4.3 g/dL (3.5-5.0); Alkaline Phosphatase 53 U/L (40-150); Anion Gap 12 mmol/L (10-20); BUN (Urea Nitrogen) 12 mg/dL (7.0-18.7); Bilirubin, Total 0.9 mg/dL (0.2-1.2); Calc. Creatinine Clearance 0 mL/min (70-130); Calcium 9.1 mg/dL (7.8-10.44); Carbon Dioxide 23 mmol/L (22-29); Chloride 104 mmol/L (98-107); Estimated GFR-MDRD Greater than 90; Globulin 3.5 g/dL (2.4-3.5); Glucose 231 mg/dL (70-105); Lipase 24 U/L (8-78); Potassium 4.2 mmol/L (3.5-5.1); Protein, Total 7.8 g/dL (6.0-8.3); Sodium 135 mmol/L (136-145)
[2018-09-16] MEDS ORDERED: Iopamidol-370 76% 500 ML 1 ML ONE (11:32)
[2018-09-16 11:47] LABS: Bilirubin Negative (Negative); Blood, Urine Negative (Negative); Clarity CLEAR (Clear); Glucose, Urine (Dipstick) 500 mg/dL (Negative); Leukocyte Negative (Negative); Nitrite Negative (Negative); Protein, Urine (Dipstick) Trace mg/dL (Neg-Trace); Specific Gravity, Urine 1.031 (1.002-1.036); Urobilinogen 0.2 mg/dL (0.2-1.0); pH, Urine 5.5 (5.0-9.0)
--- NOTE | 2018-09-16 12:08 | CT ---
CT OF ABDOMEN AND PELVIS WITH CONTRAST: Comparison: None. History: Right lower quadrant abdominal pain and epigastric abdominal pain. Technique: Multiple contiguous axial images were obtained in a CT of the abdomen and pelvis with cont rast. Coronal reformats were performed. FINDINGS: Patient is status post cholecystectomy. There is diffuse fatty infiltration of the liver. No focal li laney lesions are seen. The kidneys, adrenal glands, spleen, and pancreas are unremarkable. No free air, free fluid, or stranding changes are seen in the abdomen or pelvis. The large and small bowel are unremarkable. The appendix is unremarkable. The reproductive organs are unremarkable. No abdominal or pelvic lymphadenopathy are seen. The osseous structures, visualized inferior thorax and abdominal wall soft tissues are unremarkable. IMPRESSION: Fatty liver. POS: [facility]
== END 2018-09-16 12:40 | disposition home or self-care (01) ==
LOC: ERS 09:12
DX: R11.2 Nausea with vomiting, unspecified (principal); R19.7 Diarrhea, unspecified; R10.9 Unspecified abdominal pain; F41.9 Anxiety disorder, unspecified; Z79.84 Long term (current) use of oral hypoglycemic drugs; Z79.899 Other long term (current) drug therapy
CPT/HCPCS: 36415; 74177; 80053; 81003; 83690; 84703; 85025; 87086; 96365; 96375; J2765; J7050; Q9967; S0028

== ENCOUNTER 2019-01-31 18:41 | Emergency (ER) | payer SELFPAY ==
--- NOTE | 2019-01-31 19:47 | RAD ---
XR Chest Pa Lat STANDARD HISTORY: Cough, congestion COMPARISON: 11/26/2017 FINDINGS: The heart size is normal. The lungs are well expanded without focal areas of consolidation, pneumothorax or pleural effusions. IMPRESSION: No radiographic evidence of acute cardiopulmonary process.
== END 2019-01-31 21:00 | disposition home or self-care (01) ==
LOC: ERS 18:41
DX: J06.9 Acute upper respiratory infection, unspecified (principal); F41.9 Anxiety disorder, unspecified; F32.9 Major depressive disorder, single episode, unspecified; G43.909 Migraine, unspecified, not intractable, without status migrainosus; K21.9 Gastro-esophageal reflux disease without esophagitis; Z87.891 Personal history of nicotine dependence
CPT/HCPCS: 71046; 87804

== ENCOUNTER 2019-09-16 16:36 | Emergency (ER) | payer SELFPAY ==
--- NOTE | 2019-09-16 17:45 | RAD ---
EXAM: XR Shoulder Rt 3 View STANDARD PROVIDED CLINICAL HISTORY: Pain FINDINGS: Comparison 10/17/2017 There is no evidence for fracture or other acute osseous abnormality. Alignment appears anatomic. Subacromial space appears preserved. IMPRESSION: No evidence for an acute osseous abnormality. If there is persistent clinical concern, conservative m anagement and follow-up imaging advised.
[2019-09-16] MEDS ORDERED: Ketorolac Tromethamine 30 MG/ML VIAL ONE (17:47)
== END 2019-09-16 18:16 | disposition home or self-care (01) ==
LOC: ERS 16:36
DX: M75.101 Unspecified rotator cuff tear or rupture of right shoulder, not specified as traumatic (principal)
CPT/HCPCS: 93005; 96372; J1885

== ENCOUNTER 2019-11-29 19:07 | Emergency (ER) | payer SELFPAY ==
[2019-11-29] MEDS ORDERED: Lidocaine 1% PF 5 ML VIAL ONE (20:11)
== END 2019-11-29 20:42 | disposition home or self-care (01) ==
LOC: ERS 19:07
DX: L02.416 Cutaneous abscess of left lower limb (principal); E11.9 Type 2 diabetes mellitus without complications; F32.9 Major depressive disorder, single episode, unspecified; F17.210 Nicotine dependence, cigarettes, uncomplicated; Z79.4 Long term (current) use of insulin; Z79.899 Other long term (current) drug therapy
CPT/HCPCS: 10060; J2001

== ENCOUNTER 2021-03-09 19:11 | Emergency (ER) | payer MEDICAID, SELFPAY ==
[2021-03-09] MEDS ORDERED: Acetaminophen 500 MG TAB ONE (20:14)
[2021-03-09] MEDS ORDERED: Silver Sulfadiazine 50 GM TUBE ONE (20:14)
== END 2021-03-09 20:26 | disposition home or self-care (01) ==
LOC: ERS 19:11
DX: T23.201A Burn of second degree of right hand, unspecified site, initial encounter (principal); T31.0 Burns involving less than 10% of body surface; E11.9 Type 2 diabetes mellitus without complications; Z79.4 Long term (current) use of insulin; Z87.891 Personal history of nicotine dependence; Z79.899 Other long term (current) drug therapy; X10.2XXA Contact with fats and cooking oils, initial encounter
CPT/HCPCS: 99283

== ENCOUNTER 2021-08-04 11:37 | Emergency (ER) | payer SELFPAY | END 2021-08-04 13:00 | disposition home or self-care (01) | LOC: ERS 11:37 | DX: S93.402A Sprain of unspecified ligament of left ankle, initial encounter (principal); X50.1XXA Overexertion from prolonged static or awkward postures, initial encounter ==

== ENCOUNTER 2021-10-09 14:34 | Emergency (ER) | payer SELFPAY | END 2021-10-09 18:31 | disposition left against medical advice (07) | LOC: ERS 14:34 | DX: Z53.21 Procedure and treatment not carried out due to patient leaving prior to being seen by health care provider (principal) | CPT/HCPCS: 94760 ==

== ENCOUNTER 2023-08-02 05:15 | Emergency (ER) | payer SELFPAY ==
[2023-08-02] MEDS ORDERED: hydrOXYzine 25 MG TAB ONE (06:11)
== END 2023-08-02 07:00 | disposition home or self-care (01) ==
LOC: ERS 05:15
DX: R00.2 Palpitations (principal); R11.0 Nausea; E11.9 Type 2 diabetes mellitus without complications
CPT/HCPCS: 99284

== ENCOUNTER 2023-09-13 15:28 | Emergency (ER) | payer SELFPAY ==
[~2023-09-13 15:28] MED LIST: Iopamidol-370 76% 500 ML MDV (1 ML CHARGE) ONE
[2023-09-13] MEDS ORDERED: diphenhydrAMINE 50 MG/ML VIAL ONE (16:08)
[2023-09-13] MEDS ORDERED: Metoclopramide HCl 10 MG/2 ML VIAL ONE (16:08)
[2023-09-13 16:38] LABS: Bacteria/HPF None Seen HPF (None Seen); Bilirubin Negative (Negative); Blood, Urine 3+ (Negative); CAUTI Indications for Culture Pelvic or flank pain; Clarity Clear (Clear); Glucose, Urine (Dipstick) Greater than 1000 mg/dL (Negative); Ketone, Urine Greater than 150 mg/dL (Negative); Leukocyte Negative Leu/uL (Negative); Nitrite Negative (Negative); Protein, Urine (Dipstick) 20 mg/dL (Neg-Trace); Squamous Epithelial None Seen HPF (0-3); Urobilinogen Normal mg/dL (Less than 2); WBC/HPF 0-3 HPF (0-3); pH, Urine 5.5 (5.0-9.0)
[2023-09-13 16:44] LABS: Specific Gravity, Urine 1.045 (1.002-1.036)
[2023-09-13 16:45] LABS: Urine Culture Reflex No No
[2023-09-13 16:45] LABS: #Basophils 0.1 thou/uL (0.0-0.2); #Eosinphils 0.1 thou/uL (0.0-0.7); #Monocytes 1.1 thou/uL (0.11-0.59); #Neutrophils 16.9 thou/uL (1.40-6.50); %Basophils 0.4 % (0.0-1.0); %Eosinophils 0.4 % (0.0-10.0); %Lymphocytes 8.9 % (21.0-51.0); %Monocytes 5.3 % (0.0-10.0); %Neutrophils 84.6 % (42.0-75.0); Hematocrit 48.6 % (36.0-47.0); Hemoglobin 16.2 g/dL (12.0-16.0); Mean Corpuscular HGB CONC 33.3 g/dL (32.0-36.0); Mean Corpuscular Hemoglobin 29.1 pg (27.0-31.0); Mean Corpuscular Volume 87.3 fl (78.0-98.0); Mean Platelet Volume 10.7 fL (7.4-10.4); Platelet Count 412 10x3/uL (130-400); RBC Distribution Width 13.7 % (11.5-14.5); Red Blood Cell (RBC) Count 5.57 mill/uL (4.20-5.40)
[2023-09-13 17:05] LABS: BHCG - Serum Negative (NEGATIVE); Pregs Control Background? CLEAR/WHITE (CLR/WHITE); Pregs Control Bar Appear? YES (CONTROL BAR)
[2023-09-13 17:08] LABS: ALT (SGPT) 43 U/L (8-55); Albumin 4.3 g/dL (3.5-5.0); Alkaline Phosphatase 63 U/L (40-110); Anion Gap 17 mmol/L (10-20); BUN (Urea Nitrogen) 17 mg/dL (7.0-18.7); Bilirubin, Total 0.8 mg/dL (0.2-1.2); Calc. Creatinine Clearance 0 mL/min (70-130); Calcium 9.3 mg/dL (7.8-10.44); Carbon Dioxide 22 mmol/L (22-29); Chloride 102 mmol/L (98-107); Estimated GFR 116; Globulin 4.1 g/dL (2.4-3.5); Glucose 205 mg/dL (70-105); Lipase 27 U/L (8-78); Potassium 4.4 mmol/L (3.5-5.1); Protein, Total 8.4 g/dL (6.0-8.3); Sodium 137 mmol/L (136-145)
[2023-09-13 17:19] LABS: AST (SGOT) 39 U/L (5-34)
== END 2023-09-13 18:42 | disposition home or self-care (01) ==
LOC: ERS 15:28
DX: R10.9 Unspecified abdominal pain (principal); R11.2 Nausea with vomiting, unspecified; E11.9 Type 2 diabetes mellitus without complications
CPT/HCPCS: 36415; 74177; 80053; 81001; 83605; 83690; 84703; 85025; 87040; 96365; 96375; J1200; J2765; Q9967

== ENCOUNTER 2023-12-27 11:33 | Emergency (ER) | payer SELFPAY ==
[2023-12-27] MEDS ORDERED: Dexamethasone 10 MG/ML VIAL ONE (13:29)
[2023-12-27] MEDS ORDERED: Dexamethasone 4 mg/ml Vial ONE (13:29)
[2023-12-27] MEDS ORDERED: Ketorolac Tromethamine 30 MG (1 mL) VIAL ONE (13:30)
== END 2023-12-27 13:50 | disposition home or self-care (01) ==
LOC: ERS 11:33
DX: J04.0 Acute laryngitis (principal); J06.9 Acute upper respiratory infection, unspecified; E11.9 Type 2 diabetes mellitus without complications
CPT/HCPCS: 93005; 96372; J1100; J1885

== ENCOUNTER 2024-02-11 22:20 | Emergency (ER) | payer SELFPAY | END 2024-02-12 07:30 | disposition home or self-care (01) | LOC: ERS 22:20 | DX: Z53.21 Procedure and treatment not carried out due to patient leaving prior to being seen by health care provider (principal) ==

== ENCOUNTER 2024-02-12 01:14 | Emergency (ER) | payer SELFPAY | END 2024-02-12 07:23 | disposition home or self-care (01) | LOC: ERS 01:14 | DX: T43.222A Poisoning by selective serotonin reuptake inhibitors, intentional self-harm, initial encounter (principal); F32.A Depression, unspecified; E11.9 Type 2 diabetes mellitus without complications; Z79.899 Other long term (current) drug therapy | CPT/HCPCS: 80053; 80307; 84703; 85025; 93005 ==

== ENCOUNTER 2024-03-25 12:58 | Emergency (ER) | payer SELFPAY ==
[2024-03-25] MEDS ORDERED: Lidocaine 1% PF 5 ML VIAL ONE (13:29)
[2024-03-25] MEDS ORDERED: Boostrix 0.5 ML (Tdap) VIAL (>/=7 yrs of age) ONE (13:34)
[2024-03-25] MEDS ORDERED: Bacitracin 1 PK ONE (14:23)
== END 2024-03-25 14:26 | disposition home or self-care (01) ==
LOC: ERS 12:58
DX: S61.215A Laceration without foreign body of left ring finger without damage to nail, initial encounter (principal); E11.9 Type 2 diabetes mellitus without complications; I10 Essential (primary) hypertension; W26.0XXA Contact with knife, initial encounter
CPT/HCPCS: 12001; 90471; 90715

== ENCOUNTER 2024-04-06 11:37 | Emergency (ER) | payer SELFPAY | END 2024-04-06 13:06 | disposition home or self-care (01) | LOC: ERS 11:37 | DX: S61.215D Laceration without foreign body of left ring finger without damage to nail, subsequent encounter (principal); Z48.02 Encounter for removal of sutures; E11.9 Type 2 diabetes mellitus without complications; I10 Essential (primary) hypertension; X58.XXXD Exposure to other specified factors, subsequent encounter | CPT/HCPCS: 99282 ==

== ENCOUNTER 2024-08-07 21:58 | Emergency (ER) | payer SELFPAY ==
[2024-08-08] MEDS ORDERED: predniSONE 20 MG TAB ONE (00:14)
== END 2024-08-08 00:25 | disposition home or self-care (01) ==
LOC: ERS 21:58
DX: B34.9 Viral infection, unspecified (principal); E11.9 Type 2 diabetes mellitus without complications; I10 Essential (primary) hypertension; Z79.4 Long term (current) use of insulin; Z79.899 Other long term (current) drug therapy
CPT/HCPCS: 71045; 87081; 87428; 87430; J7512

== ENCOUNTER 2024-08-20 13:35 | Emergency (ER) | payer SELFPAY ==
[2024-08-20 14:11] LABS: #Basophils 0.09 10x3/uL (0.0-0.2); %Basophils 0.6 % (0.0-1.0); %Eosinophils 0.7 % (0.0-10.0); %Monocytes 6.3 % (0.0-10.0); %Neutrophils 73.1 % (42.0-75.0); Hematocrit 44.4 % (36.0-47.0); Hemoglobin 14.9 g/dL (12.0-16.0); Mean Corpuscular HGB CONC 33.6 g/dL (32.0-36.0); Mean Corpuscular Hemoglobin 29.8 pg (27.0-31.0); Mean Corpuscular Volume 88.8 fL (78.0-98.0); Mean Platelet Volume 10.4 fL (7.4-10.4); Platelet Count 348 10x3/uL (130-400); RBC Distribution Width 13.1 % (11.5-14.5)
[2024-08-20 14:22] LABS: BHCG - Serum Negative (NEGATIVE); Pregs Control Bar Appear? YES (CONTROL BAR)
[2024-08-20 14:23] LABS: Pregs Control Background? CLEAR/WHITE (CLR/WHITE)
[2024-08-20 14:27] LABS: ALT (SGPT) 24 U/L (8-55); AST (SGOT) 13 U/L (5-34); Albumin 3.5 g/dL (3.5-5.0); Alkaline Phosphatase 58 U/L (40-110); Anion Gap 13 mmol/L (10-20); BUN (Urea Nitrogen) 12 mg/dL (7.0-18.7); Bilirubin, Total 0.8 mg/dL (0.2-1.2); Calc. Creatinine Clearance 0 mL/min (70-130); Calcium 9.5 mg/dL (7.8-10.44); Carbon Dioxide 25 mmol/L (22-29); Chloride 100 mmol/L (98-107); Estimated GFR 116; Globulin 4.3 g/dL (2.4-3.5); Glucose 260 mg/dL (70-105); Lipase 31 U/L (8-78); Magnesium 1.8 mg/dL (1.6-2.6); Potassium 4.1 mmol/L (3.5-5.1); Protein, Total 7.8 g/dL (6.0-8.3); Sodium 134 mmol/L (136-145)
[2024-08-20 14:27] LABS: Bilirubin Negative (Negative); Blood, Urine 2+ (Negative); CAUTI Indications for Culture Pelvic or flank pain; Clarity Turbid (Clear); Glucose, Urine (Dipstick) Greater than 1000 mg/dL (Negative); Ketone, Urine Negative (Negative); Leukocyte 500 Leu/uL (Negative); Nitrite Negative (Negative); Protein, Urine (Dipstick) 50 mg/dL (Neg-Trace); RBC/HPF Greater than 50 HPF (0-3); Specific Gravity, Urine 1.043 (1.002-1.036); Squamous Epithelial 0-3 HPF (0-3); Urobilinogen Normal mg/dL (Less than 2); WBC/HPF Greater than 50 HPF (0-3); Yeast-Budding 2+ HPF (None Seen); Yeast-Hyphae Rare HPF (None Seen); pH, Urine 5.5 (5.0-9.0)
[2024-08-20 14:45] LABS: Bacteria/HPF 1+ HPF (None Seen)
[2024-08-20 14:47] LABS: Urine Culture Reflex Yes Yes
== END 2024-08-20 15:56 | disposition left against medical advice (07) ==
LOC: ERS 13:35
DX: Z53.21 Procedure and treatment not carried out due to patient leaving prior to being seen by health care provider (principal)
CPT/HCPCS: 36415; 80053; 81001; 83690; 83735; 84703; 85025; 87077; 87086; 87186

== ENCOUNTER 2024-09-04 13:08 | Emergency (ER) | payer SELFPAY ==
[2024-09-04 14:05] LABS: #Basophils 0.07 10x3/uL (0.0-0.2); %Basophils 0.9 % (0.0-1.0); %Eosinophils 1.6 % (0.0-10.0); %Lymphocytes 35.4 % (21.0-51.0); %Monocytes 8.3 % (0.0-10.0); %Neutrophils 53.5 % (42.0-75.0); Hematocrit 41.3 % (36.0-47.0); Mean Corpuscular HGB CONC 33.9 g/dL (32.0-36.0); Mean Corpuscular Hemoglobin 29.4 pg (27.0-31.0); Mean Corpuscular Volume 86.6 fL (78.0-98.0); Mean Platelet Volume 10.4 fL (7.4-10.4); Platelet Count 386 10x3/uL (130-400); RBC Distribution Width 13.1 % (11.5-14.5); Red Blood Cell (RBC) Count 4.77 mill/uL (4.20-5.40)
[2024-09-04 14:26] LABS: BHCG - Serum Negative (NEGATIVE); Pregs Control Background? CLEAR/WHITE (CLR/WHITE); Pregs Control Bar Appear? YES (CONTROL BAR)
[2024-09-04] MEDS ORDERED: Ketorolac Tromethamine 30 MG (1 mL) VIAL ONE (14:29)
[2024-09-04 14:31] LABS: ALT (SGPT) 26 U/L (8-55); AST (SGOT) 17 U/L (5-34); Albumin 3.3 g/dL (3.5-5.0); Alkaline Phosphatase 49 U/L (40-110); Anion Gap 13 mmol/L (10-20); BUN (Urea Nitrogen) 10 mg/dL (7.0-18.7); Bilirubin, Total 0.4 mg/dL (0.2-1.2); Calc. Creatinine Clearance 0 mL/min (70-130); Calcium 8.9 mg/dL (7.8-10.44); Carbon Dioxide 22 mmol/L (22-29); Chloride 104 mmol/L (98-107); Estimated GFR 114; Globulin 3.8 g/dL (2.4-3.5); Glucose 274 mg/dL (70-105); Lipase 39 U/L (8-78); Potassium 4.2 mmol/L (3.5-5.1); Protein, Total 7.1 g/dL (6.0-8.3); Sodium 135 mmol/L (136-145)
[2024-09-04 15:07] LABS: Bacteria/HPF None Seen HPF (None Seen); Bilirubin Negative (Negative); Blood, Urine 2+ (Negative); CAUTI Indications for Culture Dysuria,urgency,freq; Clarity Clear (Clear); Glucose, Urine (Dipstick) Greater than 1000 mg/dL (Negative); Ketone, Urine Negative (Negative); Leukocyte Negative Leu/uL (Negative); Nitrite Negative (Negative); Protein, Urine (Dipstick) Negative (Neg-Trace); RBC/HPF 0-3 HPF (0-3); Specific Gravity, Urine 1.034 (1.002-1.036); Squamous Epithelial 0-3 HPF (0-3); Urobilinogen Normal mg/dL (Less than 2); WBC/HPF 0-3 HPF (0-3); pH, Urine 5.5 (5.0-9.0)
[2024-09-04 15:09] LABS: Urine Culture Reflex No No
== END 2024-09-04 16:00 | disposition home or self-care (01) ==
LOC: ERS 13:08
DX: R10.2 Pelvic and perineal pain (principal)
CPT/HCPCS: 36415; 80053; 81001; 83690; 84703; 85025; 96372; 99283; J1885

== ENCOUNTER 2025-05-27 01:29 | Emergency (ER) | payer SELFPAY | END 2025-05-27 02:07 | disposition left against medical advice (07) | LOC: ERS 01:29 | DX: Z53.21 Procedure and treatment not carried out due to patient leaving prior to being seen by health care provider (principal) ==